=== PATIENT | female | born 1975 | race Caucasian/White ===

== ENCOUNTER 2017-11-20 17:31 | Emergency (ER) | payer SELFPAY ==
[2017-11-20] MEDS ORDERED: Sodium Chloride 0.9% 2.5 ML Syringe FLUSH PRN (17:34)
[2017-11-20] MEDS ORDERED: Sodium Chloride 0.9% 10 ML Syringe FLUSH PRN (17:34)
[2017-11-20] MEDS ORDERED: Sodium Chloride 0.9% 1,000 ML IV ONE (17:34)
[2017-11-20] MEDS ORDERED: Ondansetron 4 MG/2 ML SDV IVPUSH ONE (17:41)
[2017-11-20] MEDS ORDERED: Morphine 4 MG/ML Syringe IVPUSH ONE (17:41)
--- NOTE | 2017-11-20 17:45 | EDM.PDOC ---
<Onel Hill - Last Filed: 11/20/17 20:34> ED HPI GENERAL MEDICAL PROBLEM - General Chief Complaint: Back Pain or Injury Stated Complaint: POSSIBLE KIDNEY STONE Time Seen by Provider: 11/20/17 17:33 Source of Information: Reports: Patient History Limitations: Reports: No Limitations - History of Present Illness INITIAL COMMENTS - FREE TEXT/NARRATIVE: This is Dr. Hill taking over patient care at [address] Hung. I have discussed the case and reviewed all pertinent history, physical, laboratory and radiographic findings of this patient. I have also personally examined the patient and agree with all the above. Patient is a 42-year-old female with past medical history of kidney stones complaining of left lower quadrant pain. Initial CBC showed some mild leukocytosis 14K, CMP showed mild elevation of bilirubin at 1.5. UA/UC pending as well as CT abdomen and pelvis. Diagnostic: CBC, CMP, UA/UC, CT abdomen and pelvis Therapeutic: Toradol 30 mg IV 1, Reglan 10 mg IV 1, morphine 4 mg IV 2, Zofran 4 mg IV 1 , Dilaudid 1 mg IV 1, 1 L normal saline 1 Impression: Left lower quadrant abdominal pain Left ureterolithiasis Mild left hydronephrosis Plan: CT showed mild left hydronephrosis and hydroureter secondary to a 5 mm stone in the distal left ureter. There was also incidental findings of hepatic steatonecrosis and hepatomegaly. Urinalysis was negative for UTI. Leukocyte most likely stress induced from pain as no history of fever, chills and remained afebrile while in ER. Did talk with Dr. Gómez, urologist, who recommended follow-up with him on Thursday. Patient was discharged with [place] 10-325 mg and tamsulosin with instructions to call and follow-up with Dr. Espinal on Thursday. She was instructed to return to emergency department if she had any new or worsening symptoms. Definitive disposition and diagnosis as appropriate pending reevaluation and review above. - Related Data Allergies Allergy/AdvReac Type Severity Reaction Status Date / Time No Known Allergies Allergy Verified 11/20/17 17:42 Home Meds: Home Meds . [No Known Home Meds] 11/20/17 [History] ED ROS GENERAL - Review of Systems Review Of Systems: ROS reveals no pertinent complaints other than HPI. ED EXAM, GI/ABD - Physical Exam Exam: See Below Course - Vital Signs Last Recorded V/S: Last Vital Signs Temp 98.3 F 11/20/17 17:42 Pulse 99 11/20/17 20:38 Resp 18 11/20/17 20:38 BP 132/74 11/20/17 20:38 Pulse Ox 99 11/20/17 20:38 - Orders/Labs/Meds Orders: Active Orders 24 hr Category Date Time Status Abdomen Pelvis w Cont [CT] Stat Exams 11/20/17 19:11 Taken UA W/MICROSCOPIC [URIN] Stat Lab 11/20/17 20:15 Ordered Saline Lock Insert [OM.PC] Stat Oth 11/20/17 17:34 Ordered Labs: Laboratory Tests 11/20/17 11/20/17 11/20/17 Range/Units 17:56 17:56 20:15 WBC 13.94 H (4.0-11.0) K/uL RBC 3.79 L (4.30-5.90) M/uL Hgb 14.2 (12.0-16.0) g/dL Hct 40.5 (36.0-46.0) % MCV 106.9 H (80.0-98.0) fL MCH 37.5 H (27.0-32.0) pg MCHC 35.1 (31.0-37.0) g/dL RDW Std Deviation 45.7 (28.0-62.0) fl RDW Coeff of Danie 12 (11.0-15.0) % Plt Count 112 L (150-400) K/uL MPV 10.70 (7.40-12.00) fL Neut % (Auto) 96.6 H (48.0-80.0) % Lymph % (Auto) 2.8 L (16.0-40.0) % Cameron % (Auto) 0.4 (0.0-15.0) % Eos % (Auto) 0.1 (0.0-7.0) % Baso % (Auto) 0.1 (0.0-1.5) % Neut # (Auto) 13.5 H (1.4-5.7) K/uL Lymph # (Auto) 0.4 L (0.6-2.4) K/uL Cameron # (Auto) 0.1 (0.0-0.8) K/uL Eos # (Auto) 0.0 (0.0-0.7) K/uL Baso # (Auto) 0.0 (0.0-0.1) K/uL Nucleated RBC % 0.0 /100WBC Nucleated RBCs # 0 K/uL Sodium 136 (136-145) mmol/L Potassium 3.7 (3.5-5.1) mmol/L Chloride 100 (98-107) mmol/L Carbon Dioxide 25.0 (21.0-32.0) mmol/L BUN 12 (7.0-18.0) mg/dL Creatinine 0.9 (0.6-1.0) mg/dL Est Cr Clr Drug Dosing 60.82 mL/min Estimated GFR (MDRD) > 60.0 ml/min Glucose 121 H (74-106) mg/dL Calcium 9.4 (8.5-10.1) mg/dL Total Bilirubin 1.5 H (0.2-1.0) mg/dL AST 59 H (15-37) IU/L ALT 55 (14-63) IU/L Alkaline Phosphatase 81 (46-116) U/L Total Protein 7.7 (6.4-8.2) g/dL Albumin 4.1 (3.4-5.0) g/dL Globulin 3.6 H (2.0-3.5) g/dL Albumin/Globulin Ratio 1.1 L (1.3-2.8) Urine Color YELLOW Urine Appearance HAZY Urine pH 6.5 (5.0-8.0) Ur Specific [place] 1.010 (1.001-1.035) Urine Protein NEGATIVE (NEGATIVE) mg/dL Urine Glucose (UA) NEGATIVE (NEGATIVE) mg/dL Urine Ketones 40 H (NEGATIVE) mg/dL Urine Occult Blood TRACE-INTACT (NEGATIVE) Urine Nitrite NEGATIVE (NEGATIVE) Urine Bilirubin NEGATIVE (NEGATIVE) Urine Urobilinogen 0.2 (<2.0) EU/dL Ur Leukocyte Esterase NEGATIVE (NEGATIVE) Urine RBC 2-4 (0-2/HPF) Urine WBC 3-5 (0-5/HPF) Ur Epithelial Cells FEW (NONE-FEW) Urine Bacteria FEW (NEGATIVE) Meds: Medications Discontinued Medications Generic Name Dose Route Start Last Admin Trade Name Freq PRN Reason Stop Dose Admin Hydromorphone HCl 1 mg 07/20/18 19:47 11/20/17 19:53 Dilaudid IVPUSH 11/20/17 19:48 1 mg ONETIME ONE Administration Sodium Chloride 1,000 mls @ 999 mls/hr 11/20/17 17:34 11/20/17 17:59 Normal Saline IV 11/20/17 18:34 999 mls/hr .Bolus ONE Administration Iopamidol 80 ml 11/20/17 19:37 11/20/17 20:02 Isovue Multipack-370 (76%) IVPUSH 11/20/17 19:38 80 ml ONETIME ONE Administration Ketorolac Tromethamine 30 mg 11/20/17 18:28 11/20/17 18:33 Toradol IVPUSH 11/20/17 18:29 30 mg ONETIME ONE Administration Metoclopramide HCl 10 mg 11/20/17 18:28 11/20/17 18:33 Reglan IV 11/20/17 18:29 10 mg ONETIME ONE Administration Morphine Sulfate 4 mg 11/20/17 17:41 11/20/17 17:53 Morphine IVPUSH 11/20/17 17:42 Not Given ONETIME ONE Morphine Sulfate 4 mg 11/20/17 17:49 11/20/17 17:59 Morphine IVPUSH 11/20/17 17:50 4 mg ONETIME ONE Administration Morphine Sulfate 4 mg 11/20/17 19:45 Morphine IVPUSH 11/20/17 19:46 ONETIME ONE Ondansetron HCl 4 mg 11/20/17 17:41 11/20/17 17:59 Zofran IVPUSH 11/20/17 17:42 4 mg ONETIME ONE Administration Sodium Chloride 10 ml 11/20/17 17:34 Saline Flush FLUSH ASDIRECTED PRN Keep Vein Open Sodium Chloride 2.5 ml 11/20/17 17:34 Saline Flush FLUSH ASDIRECTED PRN Keep Vein Open Departure - Departure Time of Disposition: 20:37 Disposition: Home, Self-Care 01 Condition: Good Clinical Impression: Ureterolithiasis, Hydronephrosis, left - Discharge Information Instructions: Renal Colic, [id number], Kidney Stones, [id number], Hydronephrosis Referrals: PCP,None [Primary Care Provider] - Forms: ED Department Discharge Additional Instructions: My general discharge The following information is given to patients seen in the emergency department who are being discharged to home. This information is to outline your options for follow-up care. We provide all patients seen in our emergency department with a follow-up referral. The need for follow-up, as well as the timing and circumstances, are variable depending upon the specifics of your emergency department visit. If you don't have a primary care physician on staff, we will provide you with a referral. We always advise you to contact your personal physician following an emergency department visit to inform them of the circumstance of the visit and for follow-up with them and/or the need for any referrals to a consulting specialist. The emergency department will also refer you to a specialist when appropriate. This referral assures that you have the opportunity for follow-up care with a specialist. All of these measure are taken in an effort to provide you with optimal care, which includes your follow-up. Under all circumstances we always encourage you to contact your private physician who remains a resource for coordinating your care. When calling for follow-up care, please make the office aware that this follow-up is from your recent emergency room visit. If for any reason you are refused follow-up, please contact the [facility] at and asked to speak to the emergency department charge nurse. [facility]rology [address] [place] [id number] Please call number above for Dr. Espinal. Be sure to tell them you were seen in the emergency department and they requested that you follow-up with Dr. Espinal as soon as possible. Take medications as prescribed. Return to emergency department if any new or worsening symptoms as we discussed. - My Orders Last 24 Hours: My Active Orders 11/20/17 17:34 Saline Lock Insert [OM.PC] Stat 11/20/17 20:15 UA W/MICROSCOPIC [URIN] Stat - Assessment/Plan Last 24 Hours: My Active Orders 11/20/17 17:34 Saline Lock Insert [OM.PC] Stat 11/20/17 20:15 UA W/MICROSCOPIC [URIN] Stat <Mei Hung - Last Filed: 11/21/17 09:23> ED HPI GENERAL MEDICAL PROBLEM - General Source of Information: Reports: Patient History Limitations: Reports: No Limitations - History of Present Illness INITIAL COMMENTS - FREE TEXT/NARRATIVE: History of present illness: []Patient began having left sided flank and abdominal pain at 8:30 this morning that has progressively worsened throughout the day. Patient has also had nausea , vomiting and chills. She denies any fevers, diarrhea, chest pain or shortness of breath. She has had kidney stones in the past and states that this does not feel similar. Review of systems: As per history of present illness and below otherwise all systems reviewed and negative. Past medical history: As per history of present illness and as reviewed below otherwise noncontributory. Surgical history: As per history of present illness and as reviewed below otherwise noncontributory. Social history: No reported history of drug or alcohol abuse. Family history: As per history of present illness and as reviewed below otherwise noncontributory. Physical exam: General: Well developed, well nourished in NAD HEENT: Atraumatic, normocephalic, pupils reactive, negative for conjunctival pallor or scleral icterus, mucous membranes moist, throat clear, neck supple, nontender, trachea midline. Lungs: Clear to auscultation, breath sounds equal bilaterally, chest nontender. Heart: S1S2, regular, negative for clicks, rubs, or JVD. Abdomen: Soft, nondistended, nontender. Negative for masses or hepatosplenomegaly. Negative for costovertebral tenderness. Pelvis: Stable nontender. Genitourinary: Deferred. Rectal: Deferred. Extremities: Atraumatic, negative for cords or calf pain. Neurovascular unremarkable. Neuro: Awake, alert, oriented. Cranial nerves II through XII unremarkable. Cerebellum unremarkable. Motor and sensory unremarkable throughout. Exam nonfocal. Diagnostics: []Labs ordered results pending Dr. Hill to review Therapeutics: []IV fluids morphine and Zofran given Impression: []Diagnosis per Dr. Hill Plan: []Disposition per Dr. Hill Definitive disposition and diagnosis as appropriate pending reevaluation and review of above. Left Abdomen Pain Score (Numeric/FACES): 10 ED ROS GENERAL - Review of Systems Review Of Systems: ROS reveals no pertinent complaints other than HPI. ED EXAM, GI/ABD - Physical Exam Exam: See Below (See history of present illness) Course - Vital Signs Last Recorded V/S: Last Vital Signs Temp 98.3 F 11/20/17 17:42 Pulse 99 11/20/17 20:38 Resp 18 11/20/17 20:38 BP 132/74 11/20/17 20:38 Pulse Ox 99 11/20/17 20:38 - Orders/Labs/Meds Labs: Laboratory Tests 11/20/17 11/20/17 11/20/17 Range/Units 17:56 17:56 20:15 WBC 13.94 H (4.0-11.0) K/uL RBC 3.79 L (4.30-5.90) M/uL Hgb 14.2 (12.0-16.0) g/dL Hct 40.5 (36.0-46.0) % MCV 106.9 H (80.0-98.0) fL MCH 37.5 H (27.0-32.0) pg MCHC 35.1 (31.0-37.0) g/dL RDW Std Deviation 45.7 (28.0-62.0) fl RDW Coeff of Danie 12 (11.0-15.0) % Plt Count 112 L (150-400) K/uL MPV 10.70 (7.40-12.00) fL Neut % (Auto) 96.6 H (48.0-80.0) % Lymph % (Auto) 2.8 L (16.0-40.0) % Cameron % (Auto) 0.4 (0.0-15.0) % Eos % (Auto) 0.1 (0.0-7.0) % Baso % (Auto) 0.1 (0.0-1.5) % Neut # (Auto) 13.5 H (1.4-5.7) K/uL Lymph # (Auto) 0.4 L (0.6-2.4) K/uL Cameron # (Auto) 0.1 (0.0-0.8) K/uL Eos # (Auto) 0.0 (0.0-0.7) K/uL Baso # (Auto) 0.0 (0.0-0.1) K/uL Nucleated RBC % 0.0 /100WBC Nucleated RBCs # 0 K/uL Sodium 136 (136-145) mmol/L Potassium 3.7 (3.5-5.1) mmol/L Chloride 100 (98-107) mmol/L Carbon Dioxide 25.0 (21.0-32.0) mmol/L BUN 12 (7.0-18.0) mg/dL Creatinine 0.9 (0.6-1.0) mg/dL Est Cr Clr Drug Dosing 60.82 mL/min Estimated GFR (MDRD) > 60.0 ml/min Glucose 121 H (74-106) mg/dL Calcium 9.4 (8.5-10.1) mg/dL Total Bilirubin 1.5 H (0.2-1.0) mg/dL AST 59 H (15-37) IU/L ALT 55 (14-63) IU/L Alkaline Phosphatase 81 (46-116) U/L Total Protein 7.7 (6.4-8.2) g/dL Albumin 4.1 (3.4-5.0) g/dL Globulin 3.6 H (2.0-3.5) g/dL Albumin/Globulin Ratio 1.1 L (1.3-2.8) Urine Color YELLOW Urine Appearance HAZY Urine pH 6.5 (5.0-8.0) Ur Specific [place] 1.010 (1.001-1.035) Urine Protein NEGATIVE (NEGATIVE) mg/dL Urine Glucose (UA) NEGATIVE (NEGATIVE) mg/dL Urine Ketones 40 H (NEGATIVE) mg/dL Urine Occult Blood TRACE-INTACT (NEGATIVE) Urine Nitrite NEGATIVE (NEGATIVE) Urine Bilirubin NEGATIVE (NEGATIVE) Urine Urobilinogen 0.2 (<2.0) EU/dL Ur Leukocyte Esterase NEGATIVE (NEGATIVE) Urine RBC 2-4 (0-2/HPF) Urine WBC 3-5 (0-5/HPF) Ur Epithelial Cells FEW (NONE-FEW) Urine Bacteria FEW (NEGATIVE)
[2017-11-20] MEDS ORDERED: Morphine 2 MG/ML Syringe IVPUSH ONE ×2 (17:49→19:45)
[2017-11-20] MEDS ORDERED: Metoclopramide 10 MG/2 ML SDV IV ONE (18:28)
[2017-11-20] MEDS ORDERED: Ketorolac 30 MG/ML SDV IVPUSH ONE (18:28)
[2017-11-20 18:35] LABS: CHLORIDE,CL 100 mmol/L (98-107); SODIUM,NA 136 mmol/L (136-145)
[2017-11-20] MEDS ORDERED: Iopamidol 755 MG/ML 200 ML Multipack Bottle IVPUSH ONE (19:37)
[2017-11-20] MEDS ORDERED: HYDROmorphone 1 MG/ML Syringe IVPUSH ONE (19:47)
--- NOTE | 2017-11-23 08:59 | CT ---
EXAM DATE: 11/20/17 PATIENT'S AGE: 42 Patient: JOSE DAVID ASIF Facility: [place], [place] Site . Site : [id number] Study: CT Abdomen/Pelvis w cont [id number]/[id number] 7:40:42 PM Ordering Physician: Sergio Sykes Final Report: INDICATION: Left lower pain since this morning, history of renal stones TECHNIQUE: CT abdomen and pelvis acquired with 80 cc Isovue 370 IV contrast. COMPARISON: None FINDINGS: Lower chest: Unremarkable. Liver: Hepatic steatosis. The liver measures 23 cm in length. Spleen: Unremarkable. Pancreas: Unremarkable. Gallbladder and bile ducts: Unremarkable. Adrenal glands: Unremarkable. Kidneys: Mild left hydronephrosis and hydroureter secondary to a 5 mm stone in the distal left ureter. There is mild left perinephric fat stranding and left renal edema. There is a simple cyst on the left kidney. No additional renal stone identified. GI tract: Unremarkable. Appendix is normal. Vascular structures: Unremarkable. Lymph nodes: Unremarkable. Miscellaneous: Unremarkable. No free air or significant free fluid. Pelvic Organs: Status post hysterectomy. Bones: Unremarkable for age. IMPRESSION: Mild left hydronephrosis and hydroureter secondary to a 5 mm stone in the distal left ureter. No additional renal stone identified. Hepatic steatosis and hepatomegaly. Status post hysterectomy. Please note that all CT scans at this facility use dose modulation, iterative reconstruction, and/or weight-based dosing when appropriate to reduce radiation dose to as low as reasonably achievable. Dictated by Jojo Moulton MD @ Nov 20 2017 8:01PM (Electronic Signature) Report Signed by Proxy. GREGORIA
== END 2017-11-20 20:57 | disposition home or self-care (01) ==
LOC: MW.ED 17:31
DX: N13.2 Hydronephrosis with renal and ureteral calculous obstruction (principal)
CPT/HCPCS: 36415; 74177; 80053; 81001; 85025; 96361; 96374; 96375; 99284; J1170; J1885; J2270; J2405; J2765; J7040; Q9967